=== PATIENT | female | born 1970 | race Caucasian/White ===

== ENCOUNTER 2019-09-24 08:49 | Outpatient (CLI) | payer BC, SELFPAY ==
--- NOTE | 2019-09-24 08:52 | ECG_ITS ---
Measurements Intervals [place] Rate: 61 P: 52 [place]: 202 QRS: 17 QRSD: 91 T: 5 QT: 390 QTc: 396 Interpretive Statements SINUS RHYTHM DELAYED PRECORDIAL R/S TRANSITION VOLTAGE CRITERIA FOR LVH BORDERLINE ST-T WAVE ABNORMALITY- INFERIOR LEADS BASELINE ARTIFACT- I, II, AVR BORDERLINE ECG Electronically Signed On 09-24-2019 15:59:14 [employer] by Giovanny Carrizales D.O.
[2019-09-24 09:45] LABS: Blood Urea Nitrogen 14 mg/dL (7-17); Calcium 9.6 mg/dL (8.4-10.2); Carbon Dioxide 27 mmol/L (22-30); Chloride 99 mmol/L (98-107); Estimated Glomerular Filt Rate > 60; Glucose 122 mg/dL (65-105); Potassium 3.5 mmol/L (3.4-5.0); Sodium 136 mmol/L (137-145)
[2019-09-24 09:46] LABS: Alanine Aminotransferase 22 U/L (4-35); Albumin Level 4.4 g/dL (3.5-5.1); Alkaline Phosphatase 40 U/L (38-126); Amylase 91 U/L (30-110); Aspartate Amino Transferase 26 U/L (14-36); Bilirubin,Total 1.1 mg/dL (0.2-1.3); Lipase 140 U/L (23-300)
== END 2019-09-24 08:50 | disposition home or self-care (01) ==
LOC: ANHSURGERY 08:52
PROVIDERS: Anesthesiology; PCP Family Medicine; Visit Provider Surgery
DX: K80.10 Calculus of gallbladder with chronic cholecystitis without obstruction (principal); Z51.81 Encounter for therapeutic drug level monitoring; I10 Essential (primary) hypertension; Z79.899 Other long term (current) drug therapy
CPT/HCPCS: 36415; 80048; 80076; 82150; 83690; 86850; 86900; 86901; 93005

== ENCOUNTER 2019-10-01 01:17 | Day surgery (SDC) | payer BC, SELFPAY ==
[2019-09-21 10:16] VITALS: BMI 35.6
[2019-10-01] VITALS (7 sets, daily range): BP systolic 119–142; BP diastolic 68–78; PULSE 56–62; RESP 11–16; TEMP 36–36.8; O2SAT 95–100
[2019-10-01] MEDS: LACTATED RINGERS 1,000 ML 30 ML IV CONT ×2 (11:40→14:30)
--- NOTE | 2019-10-01 12:00 | WPDANESEPPF ---
Anes - Initial Pre Proc Eval Procedure: Operation Date: 10/01/19 13:00 Proposed Procedures p Laparoscopic Cholecystectomy - Pankaj Ozuna MD Date/Time: 10/01/19 12:00 Surgeon: Pankaj Ozuna MD Pre Op Diagnosis: Chronic Cholecystitis With Stones Patient Data Age: 48 Gender: F Height: 5 ft 4 in Weight: 93 kg Allergies Allergy/AdvReac Type Severity Reaction Status Date / Time No Known Allergies Allergy Mild Unverified 10/01/19 11:26 Home Medications Medication Instructions Recorded Confirmed Type atenolol 50 mg-chlorthalidone 25 1 tablet PO DAILY 09/02/19 10/01/19 History mg tablet escitalopram oxalate 10 mg tablet 10 mg PO DAILY 09/02/19 10/01/19 History sumatriptan succinate 100 mg tablet 100 mg PO ONCE PRN 09/02/19 10/01/19 History glucos sul [id number] 1 cap PO DAILY 09/21/19 10/01/19 History [Glucosamine Chondroitin] potassium chloride 20 meq PO DAILY 09/21/19 10/01/19 History Patient hx anesthesia problems: none Family hx anesthesia problems: none [facility] Surgical History Surgical History History of D&C History of tubal ligation Family History Family History Unknown Heart disease Social History Social History Smoking status: Never smoker Alcohol intake: current Anes - Eval Final PreProcedure Day of Procedure 10/01/19 12:00 Patient weight: obese Heart: regular rate and rhythm Lungs: clear to auscultation Airway: Mallampati scale class II Neurological: alert and oriented Last oral intake: >/= 8 hours ASA classification: II Emergent: no Anesthetic plan: proceed Anesthesia type and monitoring: general ETT and standard monitoring Informed Consent: The patient's anesthetic plan and its attendant risks and benefits were discussed with the patient/family/POA. Questions were solicited and answers provided to the satisfaction of the patient/family/POA.
--- NOTE | 2019-10-01 13:20 | WPDHPUPDATE1 ---
History and Physical Update Update Date/Time: 10/01/19 13:20 History and Physical has been reviewed, including an updated exam of the patient. There are NO changes in the patient's condition. Risks, benefits, and alternatives have been discussed and questions answered. Patient agrees to proceed with procedure.
[2019-10-01] MEDS: ceFAZolin 2 GM/D5W 50 ML 2 GM/50 ML BAG IVPB (13:24)
--- NOTE | 2019-10-01 13:24 | P.OP_ITS ---
Procedure Note - Detailed Date of procedure: 10/01/19 Pre-op diagnosis: Chronic Cholecystitis With Stones Chronic cholecystitis, cholelithiasis Post-op diagnosis: same Procedure performed: Laparoscopic cholecystectomy Description of procedure: The patient was taken to surgery and induced into general anesthesia. The abdomen was prepped and draped. Trocars were placed in the usual fashion using 0.5% Marcaine with epinephrine and applied Medical optical trocars. A 5 millimeter camera was used. The gallbladder was decompressed with a laparoscopic aspirator. The cholecystotomy was closed with a Vicryl endo-loop. The gallbladder was retracted anterosuperiorly. Adhesions to the gallbladder were taken down so that the cholecystohepatic triangle was exposed. Traction was placed on the infu ndibulum. The cystic duct and cystic artery were dissected out very clearly. The gallbladder was dissected off the liver at its lower 3rd. Critical view was achieved. We securely clipped and divided the cystic duct and cystic artery. The gallbladder was then further retracted so that the peritoneal attachments to the liver could be divided. Once the gallbladder was freed entirely, it was placed in an Endo-Catch bag and retrieved through the 10 11 epigastric trocar site. The epigastric trocar was then replaced. We reviewed the right upper quadrant. It was irrigated and suctioned. All looked good with no evidence of bleeding or bile leakage. We evacuated CO2 and removed the trocar sleeves. The fascia at the epigastric trocar site was closed with 0 Vicryl suture. Skin wounds were closed with subcuticular 4 O Monocryl skin suture. The wounds were dressed with Exofin surgical adhesive. Patient was awakened and taken to recovery in good condition. Sponge and needle counts were correct x2. Anesthesia: GETA and local (0.5% Marcaine with epinephrine) Surgeon: Pankaj Ozuna MD Estimated blood loss (mL): 5 Drains: No Packing: No Pathology: yes (Gallbladder) Complications: None Condition: stable Disposition: PACU Findings: Chronic inflammation, several gallstones noted. No biliary ductal di latation, no liver abnormalities.
--- NOTE | 2019-10-01 15:23 | SUR.OPER ---
Downtime Medication charting Bupivicaine 0.5% with epi 21 ml IV tylenol 1 gram 1324 Toradol IVP 30mg 1417 EBL 5
--- NOTE | 2019-10-01 19:19 | OP_ITS ---
DATE OF PROCEDURE: 10/01/2019 PREOPERATIVE DIAGNOSIS: Chronic cholecystitis, cholelithiasis. POSTOPERATIVE DIAGNOSIS: Chronic cholecystitis, cholelithiasis. PROCEDURE: Laparoscopic cholecystectomy. LOCAL AREA NETWORK ADMINISTRATOR: ALBIN Balbuena. ANESTHESIA: General endotracheal. BRIEF HISTORY: The patient is a 48-year-old woman who has had postprandial right upper quadrant abdominal pain after fatty meal. Imaging showed gallstones and evidence of chronic inflammation. After being seen in the office, she is taken to surgery now for laparoscopic cholecystectomy. FINDINGS: Showed adhesions to the gallbladder. The liver appeared normal. There were inflammatory changes of a chronic nature in the wall of the gallbladder and several stones were noted. There was no biliary ductal dilatation appreciated. DESCRIPTION OF PROCEDURE: The patient was taken to surgery and induced into general anesthesia. The abdomen was prepped and draped. Trocars were placed in the usual fashion using 0.5% Marcaine with epinephrine and applied Medical optical trocars. A 5 mm camera was used. The gallbladder was 1st decompressed with a laparoscopic aspirator. The cholecystotomy was closed with a Vicryl Endoloop. The gallbladder was then freed from adhesions and retracted anterosuperiorly. Traction was placed on the infundibulum and dissection was carried out in the triangle of Calot. The cystic duct and cystic artery were identified clearly. The gallbladder was dissected off the liver at its lower 3rd. Critical view was achieved. I then securely clipped and divided the cystic duct and cystic artery. The gallbladder was then further dissected free of its remaining peritoneal attachments to the liver. Once it was completely freed, it was placed in an EndoCatch bag. It was extricated through the epigastric trocar site. I then replaced the epigastric trocar and we reviewed the right upper quadrant. The gallbladder fossa looked quite dry without any sign of bleeding or bile leakage and all looked quite good. I evacuated CO2 and removed the trocar sleeves. Skin wounds were closed with subcuticular 4-0 Monocryl skin suture. The wounds were dressed with Extra Thin surgical adhesive. The patient was awakened and taken to Recovery in good condition. Sponge and needle counts were correct x2. D I MT: Ludy
== END 2019-10-01 16:23 | disposition home or self-care (01) ==
PROVIDERS: PCP Family Medicine; Visit Provider Surgery
PROC: 0FT44ZZ Resection of Gallbladder, Percutaneous Endoscopic Approach (ICD-10-PCS; CPT 47562; principal; 2019-10-01 13:00)
DX: K80.10 Calculus of gallbladder with chronic cholecystitis without obstruction (principal); I10 Essential (primary) hypertension; E66.9 Obesity, unspecified; Z68.35 Body mass index [BMI] 35.0-35.9, adult
CPT/HCPCS: 47562; 88304; A9270; C1713; J0131; J0690; J2250; J2405; J2704; J3010; J7120

== ENCOUNTER 2020-10-27 09:18 | Outpatient (CLI) | payer BC, SELFPAY ==
--- NOTE | 2020-11-07 14:26 | WPDHOMESLEEP ---
Sleep Study - Home Unattended Date of Study: 10/27/20 Ordering Provider: Terence Avery MD Interpreting Provider: Alexandra Beckman MD Home Sleep Study Type: Apnea Link Air Height: 1.63 m Weight: 101.605 kg Body Mass Index: 38.4 Neck Circumference (inches): 16 [place]: 12 Reason for Sleep Study Snoring, waking up gasping for breath Sleep History Deirdre Toure is a 49 year-old female Who constantly snores loudly enough that others complain about it. She occasionally awakens at night with heartburn, belching or coughing. She frequently awakens from sleep feeling short of breath. There is a family history with 3 sisters and 2 brothers having sleep apnea. She occasionally has trouble sleep with a cold. She frequently wakes up gasping for breath at night. She occasionally has breathing problems at night observed by others. She frequently sweats excessively at night. She occasionally notices her heart pounding or beating irregularly night. She frequently falls asleep during the day, occasionally involuntarily, rarely while driving. She does not fall asleep while exerting physical effort. She rarely has loss of muscle tone with strong emotion. She occasionally has daytime difficulties due to excessive sleepiness. She occasionally feels paralyzed on waking or falling asleep. She frequently has vivid dreamlike scenes upon awakening or falling asleep. She is not afraid to go to sleep. She occasionally has nightmares. She rarely remembers her dreams. She rarely has racing thoughts. She occasionally feels sad or depressed. She occasionally has anxiety. She frequently has muscular tension. She frequently notices parts of her body jerking. She occasionally kicks at night. She occasionally has crawling and aching feelings in her legs. She occasionally has leg pain during the night. She frequently has morning jaw pain. She frequently grinds her teeth during sleep. She occasionally is bothered by pain during the day and is awakened by pain during the night. She frequently wakes up feeling stiff in the morning with sore achy muscles and pain in the neck and spine. Normal bedtime is 10:00 p.m. falling asleep within 20 minutes, waking 3 or 4 times at night, often to urinate. It takes her 10 or 15 minutes to return to sleep. She wakes the morning between 6:30 a.m. and 7:00 a.m.. She may stay up later on the weekends if she goes out, but still wakes at 6:30 a.m. to 7:00 a.m.. Her work schedule is 7:15 a.m.-2: 30 p.m. She sometimes takes a short nap. Short naps are not refreshing. Habits: Never smoked tobacco. Caffeine 2-3 per day. No alcohol or recreational drugs. [facility] Past Medical History Medical History (Updated 11/07/20 @ 14:39 by Alexandra Beckman MD) Heartburn Hot flashes HTN (hypertension) Surgical History Surgical History History of D&C History of tubal ligation Status post laparoscopic cholecystectomy 10/01/2019 Family History Family History (Updated 11/07/20 @ 14:36 by Alexandra Beckman MD) Unknown Heart disease Sibling Obstructive sleep apnea Social History Social History Smoking status: Never smoker Alcohol intake: current Substance use type: does not use Gender identity (if verbalized by the patient): Female Medications Home Medications Medication Instructions Recorded Confirmed Type atenolol 50 mg-chlorthalidone 25 1 tablet PO DAILY 09/02/19 09/22/20 History mg tablet escitalopram oxalate 10 mg tablet 10 mg PO DAILY 09/02/19 09/22/20 History sumatriptan succinate 100 mg tablet 100 mg PO ONCE PRN 09/02/19 09/22/20 History potassium chloride 20 meq PO DAILY 09/21/19 09/22/20 History sodium,potassium,mag sulfates See Rx Instructions .ROUTE 09/21/20 Rx [Suprep Bowel Prep Kit] .COMPLEX #1 ml famotidine [Pepcid] 20 mg PO DAILY 09/22/20 09/22/20 History Sleep Procedure
[2020-11-07 14:31] VITALS: BMI 38.4
== END 2020-10-27 09:19 | disposition home or self-care (01) ==
LOC: ANHCSM 09:19
PROVIDERS: Family Provider Family Medicine; PCP Family Medicine; Visit Provider Family Medicine
DX: G47.33 Obstructive sleep apnea (adult) (pediatric) (principal)
CPT/HCPCS: 95806

== ENCOUNTER 2020-11-17 00:59 | Day surgery (SDC) | payer BC, SELFPAY ==
[2020-09-22 13:49] VITALS: BMI 39.0
--- NOTE | 2020-11-03 13:29 | PC.NURSE ---
Patient denies any changes in health history or medications. Updated on new arrival time. COVID positive in August- no new swab needed.
[2020-11-17 06:33] VITALS: BP 118/86; PULSE 77; RESP 16; TEMP 36.6; O2SAT 99
[2020-11-17] MEDS: LACTATED RINGERS 1,000 ML 150 ML IV CONT (06:42)
--- NOTE | 2020-11-17 07:41 | WPDANESEPPF ---
Anes - Initial Pre Proc Eval Procedure: Operation Date: 11/17/20 08:00 Proposed Procedures p Screening Colonoscopy - Guy Mosqueda MD Date/Time: 11/17/20 07:41 Surgeon: Guy Mosqueda MD Pre Op Diagnosis: neoplasm screening Patient Data Age: 49 Gender: F Height: 5 ft 3 in Weight: 95 kg Last Vital Signs Temp 97.9 F 11/17/20 06:33 Pulse 77 11/17/20 06:33 Resp 16 11/17/20 06:33 BP 118/86 11/17/20 06:33 Pulse Ox 99 11/17/20 06:33 Allergies Allergy/AdvReac Type Severity Reaction Status Date / Time No Known Allergies Allergy Mild Verified 11/17/20 06:32 Home Medications Medication Instructions Recorded Confirmed Type atenolol 50 mg-chlorthalidone 25 1 tablet PO DAILY 09/02/19 11/17/20 History mg tablet escitalopram oxalate 10 mg tablet 10 mg PO DAILY 09/02/19 11/17/20 History sumatriptan succinate 100 mg tablet 100 mg PO ONCE PRN 09/02/19 09/22/20 History potassium chloride 20 meq PO DAILY 09/21/19 11/17/20 History sodium,potassium,mag sulfates See Rx Instructions .ROUTE 09/21/20 Rx [Suprep Bowel Prep Kit] .COMPLEX #1 ml famotidine [Pepcid] 20 mg PO DAILY 09/22/20 11/17/20 History Patient hx anesthesia problems: none Family hx anesthesia problems: none PMFSH Past Medical History Medical History (Updated 11/17/20 @ 07:41 by Sergio Valderrama MD) Heartburn Hot flashes HTN (hypertension) Migraines Obstructive sleep apnea (~10/2020) Surgical History Surgical History History of D&C History of tubal ligation Status post laparoscopic cholecystectomy 10/01/2019 Family History Family History (Updated 11/07/20 @ 14:36 by Alexandra Beckman MD) Unknown Heart disease Sibling Obstructive sleep apnea Social History Social History Smoking status: Never smoker Alcohol intake: current Substance use type: does not use Gender identity (if verbalized by the patient): Female Anes - Eval Final PreProcedure Day of Procedure 11/17/20 07:41 Patient weight: obese Heart: regular rate and rhythm Lungs: clear to auscultation Airway: Mallampati scale class II Neurological: alert and oriented Last oral intake: >/= 8 hours ASA classification: III Emergent: no Anesthetic plan: proceed Anesthesia type and monitoring: general GIVS and standard monitoring Informed Consent: The patient's anesthetic plan and its attendant risks and benefits were discussed with the patient/family/POA. Questions were solicited and answers provided to the satisfaction of the patient/family/POA.
--- NOTE | 2020-11-17 07:49 | PM.HPGS ---
History of Present Illness History of Present Illness Consent: Risks, benefits, and alternatives have been discussed and questions answered. Patient agrees to proceed with procedure. Chief complaint: neoplasm screening Narrative: Deirdre Toure is a 49 year old female here for first screening colonoscopy, mother had colon cancer Review of Systems Constitutional: Constitutional: Denies headache(s) and Denies weakness Eyes: Eyes: Denies blurry vision ENT: Reports Normal hearing present, Denies headache(s) and Denies neck pain Cardiovascular: Cardiovascular: Denies chest pain and Denies dyspnea Respiratory: Respiratory: Denies dyspnea Gastrointestinal: Gastrointestinal: Reports no additional gastrointestinal complaints Genitourinary: Genitourinary: Denies dysuria Musculoskeletal: Musculoskeletal: Denies neck pain Integumentary/Breasts: Skin/Breast: Denies dry skin Neurologic: Reports Normal hearing present, Denies headache(s) and Denies weakness Psychiatric: Psychiatric: Denies anxiety Endocrine: Endocrine: Denies change in body appearance Hematologic/Lymphatic: Hematologic/Lymphatic: Denies easy bleeding Allergic/Immunologic: Allergic/Immunologic: Denies urticaria PMFSH Past Medical History Medical History (Updated 11/17/20 @ 07:49 by Guy Mosqueda MD) Family history of colon cancer in mother Heartburn Hot flashes HTN (hypertension) Migraines Obstructive sleep apnea (~10/2020) Surgical History Surgical History History of D&C History of tubal ligation Status post laparoscopic cholecystectomy 10/01/2019 Family History Family History (Updated 11/07/20 @ 14:36 by Alexandra Beckman MD) Unknown Heart disease Sibling Obstructive sleep apnea Social History Social History Smoking status: Never smoker Alcohol intake: current Substance use type: does not use Gender identity (if verbalized by the patient): Female Meds Home Medications and Allergies Home Medications Medication Instructions Recorded Confirmed Type atenolol 50 mg-chlorthalidone 25 1 tablet PO DAILY 09/02/19 11/17/20 History mg tablet escitalopram oxalate 10 mg tablet 10 mg PO DAILY 09/02/19 11/17/20 History sumatriptan succinate 100 mg tablet 100 mg PO ONCE PRN 09/02/19 09/22/20 History potassium chloride 20 meq PO DAILY 09/21/19 11/17/20 History sodium,potassium,mag sulfates See Rx Instructions .ROUTE 09/21/20 Rx [Suprep Bowel Prep Kit] .COMPLEX #1 ml famotidine [Pepcid] 20 mg PO DAILY 09/22/20 11/17/20 History Allergies Allergy/AdvReac Type Severity Reaction Status Date / Time No Known Allergies Allergy Mild Verified 11/17/20 06:32 Vital Signs Vital Signs - 24 hr 11/17/20 06:33 Temperature 97.9 F Pulse Rate 77 Respiratory Rate 16 Blood Pressure 118/86 Pulse Oximetry 99 Exam Const: General: comfortable and no acute distress HENMT: General nose exam: Normal nares present Eyes: General: appearance normal, both eyes and all related structures Neck: Neck: no JVD Resp: Auscultation: clear to auscultation bilaterally Cardio: Rate: regular rate Rhythm: regular rhythm GI: Inspection: non-distended GI Palp: Yes Soft to palpation Skin: General skin exam: normal color Neuro: General: gait normal Speech: normal speech Extrem: General: normal to inspection Psych: Mental Status: mental status grossly normal Assessment and Plan Assessment and plan (1) Family history of colon cancer in mother: Code(s): Z80.0 - Family history of malignant neoplasm of digestive organs Status: Acute Assessment and Plan: colonoscopy
[2020-11-17 08:11] VITALS: BP 109/71; PULSE 77; RESP 15; O2SAT 99
[2020-11-17 08:21] VITALS: BP 125/79; PULSE 65; RESP 11; O2SAT 99
[2020-11-17 08:31] VITALS: BP 125/84; PULSE 63; RESP 14; O2SAT 99
== END 2020-11-17 08:39 | disposition home or self-care (01) ==
PROVIDERS: Family Provider Family Medicine; PCP Family Medicine; Visit Provider Internal Medicine Gastroenterology
PROC: 0DJD8ZZ Inspection of Lower Intestinal Tract, Via Natural or Artificial Opening Endoscopic (ICD-10-PCS; CPT 45378; principal; 2020-11-17 08:00)
DX: Z12.11 Encounter for screening for malignant neoplasm of colon (principal); K64.8 Other hemorrhoids; Z80.0 Family history of malignant neoplasm of digestive organs; I10 Essential (primary) hypertension; G47.33 Obstructive sleep apnea (adult) (pediatric); E66.9 Obesity, unspecified; Z68.37 Body mass index [BMI] 37.0-37.9, adult
CPT/HCPCS: 45378; J2704; J7120

== ENCOUNTER → 2020-12-06 01:30 | Outpatient (CLI) | payer BC, SELFPAY ==
[2020-12-06 21:08] LABS: SARS-CoV-2 RNA PCR Negative
== END ==
PROVIDERS: PCP Family Medicine; Visit Provider Internal Medicine Critical Care Medicine
DX: Z20.822 Contact with and (suspected) exposure to COVID-19 (principal)
CPT/HCPCS: C9803; U0003; U0005

== ENCOUNTER 2020-12-08 07:34 | Outpatient (CLI) | payer BC, SELFPAY ==
--- NOTE | 2020-12-26 16:26 | WPDSLEEPSTUD ---
Sleep Study Ordering Provider: Terence Avery MD Interpreting Physician: Alexandra Beckman MD Sleep Study Type: CPAP Titration Height: 1.63 m Weight: 92.533 kg Body Mass Index: 35.0 Neck Circumference (inches): 15 [place]: 14 Reason for Sleep Study Home Sleep Test using ApneaLink October 27, 2020 showing an AHI of 24, 69% obstructive events 31% central and mixed apneas minimum saturation 71% with snoring. Patient presents for CPAP titration. Sleep History Deirdre Toure is a 49 year old female with constant snoring which is loud enough that others complain about it. She occasionally awakens at night with heartburn, belching or coughing. She frequently awakens from sleep feeling short of breath. There is a family history with 3 sisters and 2 brothers having sleep apnea. She occasionally has trouble sleep with a cold. She frequently wakes up gasping for breath at night. She occasionally has breathing problems at night observed by others. She frequently sweats excessively at night. She occasionally notices her heart pounding or beating irregularly night. She frequently falls asleep during the day, occasionally involuntarily, rarely while driving. She does not fall asleep while exerting physical effort. She rarely has loss of muscle tone with strong emotion. She occasionally has daytime difficulties due to excessive sleepiness. She occasionally feels paralyzed on waking or falling asleep. She frequently has vivid dreamlike scenes upon awakening or falling asleep. She is not afraid to go to sleep. She occasionally has nightmares. She rarely remembers her dreams. She rarely has racing thoughts. She occasionally feels sad or depressed. She occasionally has anxiety. She frequently has muscular tension. She frequently notices parts of her body jerking. She occasionally kicks at night. She occasionally has crawling and aching feelings in her legs. She occasionally has leg pain during the night. She frequently has morning jaw pain. She frequently grinds her teeth during sleep. She occasionally is bothered by pain during the day and is awakened by pain during the night. She frequently wakes up feeling stiff in the morning with sore achy muscles and pain in the neck and spine. Normal bedtime is 10:00 p.m. falling asleep within 20 minutes, waking 3 or 4 times at night, often to urinate. It takes her 10 or 15 minutes to return to sleep. She wakes the morning between 6:30 a.m. and 7:00 a.m.. She may stay up later on the weekends if she goes out, but still wakes at 6:30 a.m. to 7:00 a.m.. Her work schedule is 7:15 a.m.-2: 30 p.m. She sometimes takes a short nap. Short naps are not refreshing. Habits: Never smoked tobacco. Caffeine 2-3 per day. No alcohol or recreational drugs. [facility] Past Medical History Medical History Family history of colon cancer in mother Heartburn Hot flashes HTN (hypertension) Migraines Obstructive sleep apnea (~10/2020) Surgical History Surgical History History of D&C History of tubal ligation Status post laparoscopic cholecystectomy 10/01/2019 Family History Family History Unknown Heart disease Sibling Obstructive sleep apnea Social History Social History Smoking status: Never smoker Alcohol intake: current Substance use type: does not use Gender identity (if verbalized by the patient): Female Medications Home Medications Medication Instructions Recorded Confirmed Type atenolol 50 mg-chlorthalidone 25 1 tablet PO DAILY 09/02/19 11/17/20 History mg tablet escitalopram oxalate 10 mg tablet 10 mg PO DAILY 09/02/19 11/17/20 History sumatriptan succinate 100 mg tablet 100 mg PO ONCE PRN 09/02/19 09/22/20 History potassium chloride 20 meq PO DAILY 09/21/19 11/17/20
[2020-12-27 09:24] VITALS: BMI 35.0
== END 2020-12-08 07:35 | disposition home or self-care (01) ==
LOC: ANHCSM 07:34
PROVIDERS: PCP Family Medicine; Visit Provider Family Medicine
DX: G47.33 Obstructive sleep apnea (adult) (pediatric) (principal)
CPT/HCPCS: 95811

== ENCOUNTER 2022-10-05 09:15 | Emergency (ER) | payer BC, SELFPAY ==
--- NOTE | ~2022-10-05 | XR_ITS ---
XR knee RT min 4V DATE: 10/05/2022 10:00 INDICATION: Right knee pain for one week. No injury. TECHNIQUE: 4 views COMPARISON: None FINDINGS: There is moderate loss of medial compartment joint space height and mild periarticular spur ring at the medial compartment. Lateral compartment and patellofemoral compartment joint spaces appear well preserved. No fracture or dislocation or joint effusion. No periosteal reaction or bone destruction. No radiopaq ue intra-articular loose body or chondrocalcinosis. IMPRESSION: Moderate medial compartment osteoarthritis Reviewed, dictated and finalized at location [facility]
[2022-10-05 09:23] VITALS: BP 128/75; PULSE 80; RESP 20; TEMP 36.3; O2SAT 98
--- NOTE | 2022-10-05 09:37 | ED.EXTPRO ---
HPI - Extremity Problem General Chief complaint: Extremity Problem,Nontraumatic Stated complaint: Rt Knee Pain Time Seen by Provider: 10/05/22 09:37 Source: patient Mode of arrival: ambulatory Limitations: no limitations History of Present Illness HPI Narrative: 51-year-old female presents with complaint of pain to right knee for 6 days. 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 States that she uses her right leg to kick the boxes around and place. patient applying Aspercreme with some relief of pain. States that she feels tight in the back of her knee. Also has some mild pain to the medial aspect. Ambulatory with steady gait. No history injury. Reports similar pain to both knees several months ago after dancing. All systems reviewed and negative except as noted above. Related Data Home Medications Medication Instructions Recorded Confirmed atenolol 50 mg-chlorthalidone 25 1 tablet PO DAILY 09/02/19 10/05/22 mg tablet escitalopram oxalate 10 mg tablet 10 mg PO DAILY 09/02/19 10/05/22 sumatriptan succinate 100 mg tablet 100 mg PO PRN PRN Migraine Headache 09/02/19 10/05/22 potassium chloride 20 mEq 20 meq PO DAILY 09/21/19 10/05/22 tablet,extended release(part/cryst) famotidine 20 mg tablet (Pepcid) 20 mg PO DAILY 09/22/20 10/05/22 Allergies Allergy/AdvReac Type Severity Reaction Status Date / Time No Known Allergies Allergy Mild Verified 10/05/22 09:21 Review of Systems Review of Systems: CONSTITUTIONAL: Denies fever, chills, or sweats. EYES: Denies visual changes, redness, or discharge. ENT: Denies rhinorrhea, congestion, sore throat, or otalgia. CARDIOVASCULAR: Denies chest pain, palpitations, or edema. RESPIRATORY: Denies cough or dyspnea. GASTROINTESTINAL: Denies abdominal pain, nausea, vomiting, or diarrhea. GENITOURINARY: Denies dysuria or hematuria. SKIN: Denies rash or itching. MUSCULOSKELETAL: Reports pain to right knee. NEUROLOGIC: Denies headache, numbness, or weakness. PSYCHIATRIC: Denies anxiety or depression. All other systems reviewed are negative, except as documented in HPI. [facility] Past Medical History Medical History Family history of colon cancer in mother Heartburn Hot flashes HTN (hypertension) Migraines Obstructive sleep apnea (~10/2020) Surgical History Surgical History History of D&C History of tubal ligation Status post laparoscopic cholecystectomy 10/01/2019 Family History Family History Unknown Heart disease Sibling Obstructive sleep apnea Social History Social History Smoking status: Never smoker Alcohol intake: current Substance use type: does not use Living arrangements: with family Gender identity (if verbalized by the patient): Female Comments At time of signature, agree with nursing past medical, surgical, social and family history. There is no relevant family history pertinent to the presenting complaint. Exam Narrative: GENERAL: This is a well-nourished, well-developed patient, in no apparent distress. HEAD: normocephalic, atraumatic. EYES: PERRL. Sclera clear/white. Vision is grossly intact. EARS: External ears normal NOSE: External nose normal NECK: Neck supple, non-tender without lymphadenopathy, masses or thyromegaly. CARDIOVASCULAR: Regular rate and rhythm without murmurs, gallops, or rubs. RESPIRATORY: Clear to auscultation. Breath sounds equal bilaterally. No wheezes, rales, or rhonchi. SKIN: warm, Dry, intact with no suspicious lesions or rash, good texture and turgor. NEURO: awake, alert, and oriented to person, place and time. There were no obvious focal neurologic abnormalities. EXTREMITIES: tenderness
== END 2022-10-05 10:28 | disposition home or self-care (01) ==
PROVIDERS: Emergency Provider Nurse Practitioner Family; PCP Family Medicine
DX: M17.11 Unilateral primary osteoarthritis, right knee (principal); S86.911A Strain of unspecified muscle(s) and tendon(s) at lower leg level, right leg, initial encounter; X58.XXXA Exposure to other specified factors, initial encounter; R12 Heartburn; I10 Essential (primary) hypertension
CPT/HCPCS: 73564; 99213; G0463

== ENCOUNTER 2023-03-30 13:00 | Emergency (ER) | payer BC, SELFPAY | END 2023-03-30 13:50 | disposition home or self-care (01) | PROVIDERS: Emergency Provider Nurse Practitioner; PCP Family Medicine | DX: B34.9 Viral infection, unspecified (principal) | CPT/HCPCS: 87081; 87880; 99213; G0463 ==

== ENCOUNTER 2024-01-04 19:11 | Emergency (ER) | payer BC, SELFPAY ==
[2024-01-04 19:22] VITALS: BP 101/84; PULSE 91; RESP 18; TEMP 36.7; O2SAT 99
[2024-01-04 19:27] VITALS: BP 101/84; PULSE 91; RESP 18; TEMP 36.7; O2SAT 99
--- NOTE | 2024-01-04 19:39 | ED.SKABFB ---
HPI - Skin/Abscess/Foreign Bdy General Chief complaint: Skin/Abscess/Foreign Body Stated complaint: Possible spider bite behind upper right knee Time Seen by Provider: 01/04/24 19:25 Source: patient and RN notes reviewed Mode of arrival: ambulatory Limitations: no limitations History of Present Illness HPI narrative: Patient presents today complaining of a an insect bite to her right posterior thigh. She felt a bite 4 days ago but was unsure what bit her. She reports some itching but no pain. She has tried peroxide, Neosporin, and Prid Salve without relief. She is currently on her last day of cefuroxime for strep throat. Related Data Home Medications Medication Instructions Recorded Confirmed sumatriptan succinate 100 mg tablet 100 mg PO PRN PRN Migraine Headache 09/02/19 12/26/23 famotidine 20 mg tablet (Pepcid) 20 mg PO DAILY 09/22/20 12/26/23 Allergies Allergy/AdvReac Type Severity Reaction Status Date / Time No Known Allergies Allergy Mild Verified 01/04/24 19:26 Review of Systems Review of Systems: CONSTITUTIONAL: Denies body aches, fever, chills, or sweats. EYES: Denies visual changes, redness, or discharge. ENT: Denies rhinorrhea, congestion, sore throat, or otalgia. CARDIOVASCULAR: Denies chest pain, palpitations, or edema. RESPIRATORY: Denies cough or dyspnea. GASTROINTESTINAL: Denies abdominal pain, nausea, vomiting, or diarrhea. GENITOURINARY: Denies dysuria or hematuria. SKIN: + insect bite MUSCULOSKELETAL: Denies back pain, joint pain, or myalgia. NEUROLOGIC: Denies headache, numbness, tingling, or weakness. PSYCH: Denies depression or anxiety. [facility] Past Medical History Medical History Abnormal fasting glucose Family history of malignant neoplasm of colon Heartburn Hot flashes HTN (hypertension) Hyperlipidemia, unspecified Migraines Obesity Obstructive sleep apnea (~10/2020) Sleep apnea Surgical History Surgical History History of D&C History of tubal ligation Status post laparoscopic cholecystectomy 10/01/2019 Family History Family History Unknown Heart disease Sibling Obstructive sleep apnea Social History Social History Smoking status: Never smoker Second hand tobacco smoke exposure: No Alcohol intake: current Drinks per week: 2 Alcohol use details: social Substance use: never Substance use type: does not use Do You Feel Safe in your Home?: Yes Lack of Transportation: No Lack of Food: Never True Current Housing: I Have Housing Concerned About Future Housing: No Difficulty Paying Gas/Electric Bills: No Difficulty Paying for Meds: No Currently Unemployed: No Difficulty w/ Childcare or Family Care: No Living arrangements: with family Occupation/Education: occupation Gender identity (if verbalized by the patient): Female Sexual Orientation (if Verbalized by the Patient): Straight or Heterosexual Spiritual care concerns: No Comments At time of signature, I have reviewed and agree with nursing past medical, surgical, social and family history unless otherwise noted. Please see nursing chart for further information. There is no relevant family history pertinent to the presenting complaint Exam Narrative: GENERAL: Well-appearing, well-nourished, and in no acute distress. HEAD: Normocephalic, atraumatic. EYES: EOMI. No redness or drainage. Conjunctivae normal. ENT: Mucous membranes pink and moist. NECK: Normal AROM. CHEST: No respiratory distress. EXTREMITIES: 6x4.5cm round area of erythema with slightly raised edges and a darker center. Mildly tender to palpation. No induration or fluctuance noted. SKIN: Warm, dry.. Capillary refill normal. Normal skin turgor. NEURO: No focal d
== END 2024-01-04 19:49 | disposition home or self-care (01) ==
PROVIDERS: Emergency Provider Nurse Practitioner; PCP Family Medicine
DX: S70.361A Insect bite (nonvenomous), right thigh, initial encounter (principal); W57.XXXA Bitten or stung by nonvenomous insect and other nonvenomous arthropods, initial encounter; I10 Essential (primary) hypertension; E78.5 Hyperlipidemia, unspecified; E66.9 Obesity, unspecified; Z68.30 Body mass index [BMI] 30.0-30.9, adult
CPT/HCPCS: 99213; G0463